=== PATIENT | male | born 1960 ===

== ENCOUNTER 2017-05-24 17:52 | Emergency (ER) | payer SELFPAY ==
--- NOTE | 2017-05-24 18:25 | C.PDOC ---
History Of Present Illness 57 y/o male history of diabetes not on medications presents to the ED with complaints of "feeling dizzy" lightheaded and weak x3 weeks. Pt also reports upper abdominal pain when he lifts boxes at work. Pt denies fever, chills, nausea, vomiting, diarrhea or any other complaints. Time Seen by Provider: 05/24/17 18:14 Chief Complaint (Nursing): Dizziness/Lightheaded History Per: Patient History/Exam Limitations: no limitations Onset/Duration Of Symptoms: Days Current Symptoms Are (Timing): Still Present Seizure Or Post-ictal Symptoms: None Fall Associated With With Symptoms: No Severity: Mild Recent travel outside of the [place]: No - Symptoms Of CVA Recent Head Trauma: No Past Medical History Reviewed: Historical Data, Nursing Documentation, Vital Signs Vital Signs: Last Vital Signs Temp 98.9 F 05/24/17 22:45 Pulse 68 05/24/17 22:45 Resp 20 05/24/17 22:45 BP 149/83 05/24/17 22:45 Pulse Ox 96 05/24/17 22:45 Family History: States: Unknown Family Hx - Social History Hx Alcohol Use: Yes Hx Substance Use: No Review Of Systems Except As Marked, All Systems Reviewed And Found Negative. Constitutional: Positive for: Weakness. Negative for: Fever, Chills Eyes: Negative for: Vision Change Cardiovascular: Positive for: Light Headedness Gastrointestinal: Positive for: Abdominal Pain. Negative for: Nausea, Vomiting , Diarrhea Neurological: Positive for: Dizziness Physical Exam - Physical Exam Appears: Non-toxic, No Acute Distress, Other (obese) Skin: Warm, Dry, No Rash Head: Atraumatic, Normacephalic Eye(s): bilateral: PERRL, EOMI Neck: Normal, Normal ROM, Supple Chest: Symmetrical Cardiovascular: Rhythm Regular, No Murmur Respiratory: Normal Breath Sounds, No Rales, No Rhonchi, No Wheezing Gastrointestinal/Abdominal: Soft, Tenderness (mild epigastric), No Guarding, No Rebound, Hernia ((+)large right inginal hernia, soft, no ttp) Extremity: No Pedal Edema Extremity: Bilateral: Atraumatic Neurological/Psych: Oriented x3, Normal Speech, Normal Cognition, Normal Cranial Nerves, Normal Motor, Normal Sensation ED Course And Treatment - Laboratory Results Result Diagrams: 05/24/17 18:45 05/24/17 18:45 ECG: Interpreted By Me, Viewed By Me ECG Rhythm: Sinus Rhythm Interpretation Of ECG: No acute ST/T wave changes Rate From EC (BPM) O2 Sat by Pulse Oximetry: 95 (room air) Pulse Ox Interpretation: Normal Medical Decision Making Medical Decision Making: suspected hernia. r/o other metabolic infectious etiology. 730: pt reasseseed. states pain improved. 1020: pt reasesed. ct shows large hernia. pt now reports he "has had this for 20 years", after a previous trauma. hernia soft. unable to be reduced by myself pt declines surgical eval in er, as he needs to be d/c to go home to roommates. no e/o of stragulation incarceration. pt advised he needs to follow up outpt Disposition - Disposition Referrals: Latrell Hope MD [Staff Provider] - Carlos Shell MD [Staff Provider] - [facility] [Outside] [facility] [Outside] [facility] [Outside] Disposition: HOME/ ROUTINE Disposition Time: 19:35 Condition: STABLE Additional Instructions: please follow up with your doctor. return to er with worsening symptoms or concerns. please see specialist. Instructions: Inguinal Hernia (ED), Acute Abdominal Pain (ED) Print Language: NAMIBIAN - Clinical Impression Clinical Impression: Abdominal pain - Scribe Statement The provider has reviewed the documentation as recorded by the Alec Johnson Provider Attestation: All medical record entries made by the Daveibnisreen were at my direction and personally dictated by me. I have reviewed the chart and agree that the record accurately reflects my personal performance of the history, physical exam, medical decision making, and the department course for this patient. I have also personally directed, reviewed, and agree with the discharge instructions and disposition.
[2017-05-24 18:51] LABS: BASO % 0.5 % (0.0-2.0); EOS # 0.3 K/uL (0.0-0.7); EOS % 3.7 % (0.0-4.0); HEMOGLOBIN 14.2 g/dL (12.0-18.0); LYMPH # 2.1 K/uL (1.0-4.3); LYMPH % 27.9 % (20.0-40.0); MEAN CORPUSCULAR HEMOGLOBIN 29.5 pg (27.0-31.0); MEAN CORPUSCULAR HGB CONC 33.9 g/dL (33.0-37.0); MEAN PLATELET VOLUME 9.1 fL (7.2-11.7); MONO # 0.6 K/uL (0.0-0.8); NEUT # 4.4 K/uL (1.8-7.0); NEUT % 59.9 % (50.0-75.0); NRBC % 0.1 % (0.0-2.0); RBC 4.82 Mil/uL (4.40-5.90); WHITE BLOOD COUNT 7.4 K/uL (4.8-10.8)
[2017-05-24 19:00] LABS: GFR AFRICAN-AMERICAN > 60; GFR NON-AFRICAN AMERICAN > 60
[2017-05-24 19:01] LABS: ALB/GLOB RATIO 1.1 (1.0-2.1); ALT/SGPT 42 U/L (21-72); AST/SGOT 37 U/L (17-59); BLOOD UREA NITROGEN 17 mg/dL (9-20); INR 0.9; LIPASE 36 U/L (23-300); PROTHROMBIN TIME 10.3 SECONDS (9.7-12.2)
[2017-05-24 19:02] LABS: CALCIUM 9.2 mg/dl (8.6-10.4)
[2017-05-24 19:10] LABS: URINE BILIRUBIN NEGATIVE (NEGATIVE); URINE BLOOD NEGATIVE (NEGATIVE); URINE CLARITY Clear (Clear); URINE COLOR Yellow (YELLOW); URINE GLUCOSE (UA) NORMAL (Normal); URINE LEUKOCYTE ESTERASE NEG Leu/uL (Negative); URINE NITRATE NEGATIVE (NEGATIVE); URINE PROTEIN NEGATIVE (NEGATIVE)
[2017-05-24] MEDS ORDERED: Iodixanol 320 MG/ML 100 ML BOTTLE IV ONE (20:08)
--- NOTE | 2017-05-24 22:12 | CT ---
EXAM: CT Abdomen and Pelvis With Intravenous Contrast CLINICAL HISTORY: 57 years old, male; Pain; Abdominal pain; Flank; Upper; Additional info: Upper abd pain TECHNIQUE: Axial computed tomography images of the abdomen and pelvis with intravenous contrast. This CT exam was performed using one or more of the following dose reduction techniques: automated exposure control, adjustment of the mA and/or kV according to patient size, and/or use of iterative reconstruction technique. Coronal and sagittal reformatted images were created and reviewed. CONTRAST: 100 mL of visipaque 320 administered intravenously. COMPARISON: No relevant prior studies available. FINDINGS: Lower thorax: Mild cardiomegaly. No consolidation at lung bases. ABDOMEN: Liver: Hepatic steatosis and hepatomegaly. Gallbladder and bile ducts: Unremarkable. No calcified stones. No ductal dilation. Pancreas: Unremarkable. No mass. No ductal dilation. Spleen: Unremarkable. No splenomegaly. Adrenals: Unremarkable. No mass. Kidneys and ureters: Punctate left renal calculus. No hydronephrosis. Stomach and bowel: Right inguinal hernia containing fat and a knuckle of nonobstructed sigmoid, as well as bladder. Stomach is unremarkable. No small bowel obstruction. Extensive colonic diverticulosis. Moderate amount of retained stool. Appendix: No findings to suggest acute appendicitis. PELVIS: Bladder: See above. Reproductive: Unremarkable as visualized. ABDOMEN and PELVIS: Intraperitoneal space: Unremarkable. No free air. No significant fluid collection. Bones/joints: Diffuse spinal degenerative changes. No acute fracture. No dislocation. Soft tissues: See above. Vasculature: Unremarkable. No abdominal aortic aneurysm. Lymph nodes: Unremarkable. No enlarged lymph nodes. IMPRESSION: 1. Right inguinal hernia containing fat and a knuckle of nonobstructed sigmoid, as well as bladder. 2. Colonic diverticulosis, without evidence of acute diverticulitis. 3. Punctate nonobstructing left renal calculus. 4. Remainder of findings as above.
[2017-05-24 22:46] VITALS: BP 149/83; PULSE 68; RESP 20; TEMP 98.9
[2017-05-24 22:59] VITALS: O2SAT 95
--- NOTE | 2017-05-27 10:48 | CARD ---
APPROVED REPORT EKG Measurement Heart [id number] <Conclusion> Normal sinus rhythm Normal ECG
== END 2017-05-24 21:30 | disposition home or self-care (01) ==
LOC: C.ER 17:52
DX: R10.10 Upper abdominal pain, unspecified (principal)
CPT/HCPCS: 74177; 80053; 81001; 82948; 83690; 84484; 85025; 85610; 85730; 93005; 96374; 99285; J1885; Q9967